=== PATIENT | male | born 1985 | race Caucasian/White ===

== ENCOUNTER 2016-08-05 12:49 | Emergency (ER) | payer SELFPAY ==
--- NOTE | 2016-08-05 13:25 | ED NURSING NOTES ---
Clinical Report - Nurses [facility] [address] [place] [address] 08/05/2016 12:49 Patient: STEPHANI EISENBERG [facility]#: [id number] TRIAGE Triage time 12:55 Aug 05 2016. Chief Complaint: RIGHT LOWER EXTREMITY REDNESS. Location of symptoms- right thigh (pt seen at evt clinic on monday and monday this week dx with cellulitis and put on bactrim and cephalexin). Alert. No acute distress. SEPSIS SCREEN: Sepsis Screen: negative. Infection suspected/documented. RAPHAEL COMA SCORE: Raphael Coma Scale: 15- eyes open spontaneously (4); best verbal response- oriented x 4 (5); best motor response- obeys commands (6). --13:04 Gustavo Patrick R.N. 12:55 08/05/16. BP: 118/73. HR: 76. RR: 17. O2 saturation: 99%. Temp: 98.6 F. Pain level now: 07/20. --13:04 Gustavo Patrick R.N. Weight: 73 kg stated. Height/Length: 66 inches Per Patient. BMI: 26. --13:03 Gustavo Patrick R.N. Medications Bactrim DS Oral. Cephalexin Oral. --12:58 Gustavo Patrick R.N. Oxycodone-Acetaminophen Oral. --12:59 Gustavo Patrick R.N. Medication/allergy information source: the patient. --13:04 Gustavo Patrick R.N. Allergies Hydrocodone. --12:59 Gustavo Patrick R.N. History Arrived by private vehicle. Historian: patient. Accompanied by family. No injury occurred. This occurred (monday aftenoon). ( chills on monday none since). 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 PAST MEDICAL HX: Tetanus status: up-to-date. Immunizations: up-to-date. SOCIAL HX: Heavy tobacco smoker (cigarette)- 1 pack per day. Occasional alcohol use. History of heavy drug use: marijuana. No infectious disease exposure. ABUSE ASSESSMENT: No report of abuse. SELF HARM ASSESSMENT: A self harm assessment was performed. The patient answered "no" to the question "Do you have thoughts of harming or killing yourself?". FALL RISK ASSESSMENT: Fall risk assessment completed. No fall risk identified. NUTRITIONAL RISK ASSESSMENT: The nutritional risk assessment revealed no deficiencies. FUNCTIONAL ASSESSMENT: Functional assessment: no impairments noted. LEARNING NEEDS ASSESSMENT: The learning needs assessment revealed no barriers. SKIN INTEGRITY ASSESSMENT: Skin integrity risk assessment completed. No skin integrity risk identified. --13:04 Gustavo Patrick R.N. PROBLEMS: Head Injury. Intracranial Hemorrhage. Concussion. Substance Abuse. Contusion. Skin Avulsion. Hypokalemia. Anemia. Seizure Disorder. --13:00 Gustavo Patrick R.N. ADDITIONAL SURGERIES: Hernia Repair. Testicle surg as a child. --13:00 Gustavo Patrick R.N. Interventions ID and allergy band on patient. --13:04 Gustavo Patrick R.N. PHYSICAL ASSESSMENT Ambulatory to room. Patient gowned. GENERAL / NEURO / PSYCH: Oriented X 4. Alert. Appears in no acute distress. EXTREMITIES: Extremity pulses are within normal limits. Extremities exhibit normal ROM. Neuro-vascular status intact to the extremity. No lower extremity edema. Normal gait. Right thigh: erythema. SKIN: Skin intact. Skin is warm and dry. --13:05 Gustavo Patrick R.N. NURSING PROGRESS NOTES Patient gowned. Reassurance given. Patient identifiers checked. Call light placed in reach. Side rails up x 1. Bed placed in lowest position. Brakes of bed on. Patient ready for evaluation- chart flagged. Patient waiting for evaluation. --13:05 Gustavo Patrick R.N. ( pt also reports cp during the night "like every 3rd or 4th breath" pt took aleve and now cp is gone.). --13:13 Gustavo Patrick R.N. EKG time: (1346). EKG was ordered, performed by a tech and shown to the PA. --13:46 Ortiz Cross, EMERY Tech1 Patient waiting for lab and radiology results. --13:53 Gustavo Patrick R.N. ( waiting lab reports). --13:55 Gustavo Patrick R.N. 13:53 08/05/16. BP: 103/63. HR: 77. RR: 17. O2 saturation: 98%. Pain level now: 07/20. --13:55 Gustavo Patrick R.N. Patient identifiers checked. Call light placed in reach. Side rails up x 1. Bed placed in lowest position. Brakes of bed on. --13:55 Gustavo Patrick R.N. Checked patient name and birthdate. Blood samples drawn with Vacutainer by nurse per protocol ; labeled in presence of the patient and sent to lab: [facility] set. (drawn by EDT). --13:56 Gustavo Patrick R.N. DISPOSITION / DISCHARGE No learning barriers present. Discharge instructions provided and reviewed with the patient and spouse. Reviewed medication(s) dosing information. Prescription(s) given to the patient (otc). Reviewed need to stop smoking. Patient and preschool teacher verbalized understanding. Written instructions provided in Italian. The patient was discharged by the physician judicial assistant. He was discharged home and accompanied by preschool teacher. He left the Emergency Department ambulatory and via private vehicle. Patient driving. ( pt ambulated to lobby with steady gait, given rx and f/u.). --14:39 Gustavo Patrick R.N. 14:30 08/05/16. BP: 113/70. HR: 66. RR: 17. O2 saturation: 99%. Temp: 98.4 F. Pain level now: 08/20. --14:39 Gustavo Patrick R.N. Locked/Released at 08/09/2016 12:18 by Gustavo Patrick R.N.
--- NOTE | 2016-08-05 13:25 | ED NURSING NOTES ---
Clinical Report - Nurses [facility] [address] [place] [address] 08/05/2016 12:49 Patient: STEPHANI EISENBERG [facility]#: [id number] TRIAGE Triage time 12:55 Aug 05 2016. Chief Complaint: RIGHT LOWER EXTREMITY REDNESS. Location of symptoms- right thigh (pt seen at evt clinic on monday and monday this week dx with cellulitis and put on bactrim and cephalexin). Alert. No acute distress. SEPSIS SCREEN: Sepsis Screen: negative. Infection suspected/documented. RAPHAEL COMA SCORE: Raphael Coma Scale: 15- eyes open spontaneously (4); best verbal response- oriented x 4 (5); best motor response- obeys commands (6). --13:04 Gustavo Patrick R.N. 12:55 08/05/16. BP: 118/73. HR: 76. RR: 17. O2 saturation: 99%. Temp: 98.6 F. Pain level now: 07/20. --13:04 Gustavo Patrick R.N. Weight: 73 kg stated. Height/Length: 66 inches Per Patient. BMI: 26. --13:03 Gustavo Patrick R.N. Medications Bactrim DS Oral. Cephalexin Oral. --12:58 Gustavo Patrick R.N. Oxycodone-Acetaminophen Oral. --12:59 Gustavo Patrick R.N. Medication/allergy information source: the patient. --13:04 Gustavo Patrick R.N. Allergies Hydrocodone. --12:59 Gustavo Patrick R.N. History Arrived by private vehicle. Historian: patient. Accompanied by family. No injury occurred. This occurred (monday aftenoon). ( chills on monday none since). 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 PAST MEDICAL HX: Tetanus status: up-to-date. Immunizations: up-to-date. SOCIAL HX: Heavy tobacco smoker (cigarette)- 1 pack per day. Occasional alcohol use. History of heavy drug use: marijuana. No infectious disease exposure. ABUSE ASSESSMENT: No report of abuse. SELF HARM ASSESSMENT: A self harm assessment was performed. The patient answered "no" to the question "Do you have thoughts of harming or killing yourself?". FALL RISK ASSESSMENT: Fall risk assessment completed. No fall risk identified. NUTRITIONAL RISK ASSESSMENT: The nutritional risk assessment revealed no deficiencies. FUNCTIONAL ASSESSMENT: Functional assessment: no impairments noted. LEARNING NEEDS ASSESSMENT: The learning needs assessment revealed no barriers. SKIN INTEGRITY ASSESSMENT: Skin integrity risk assessment completed. No skin integrity risk identified. --13:04 Gustavo Patrick R.N. PROBLEMS: Head Injury. Intracranial Hemorrhage. Concussion. Substance Abuse. Contusion. Skin Avulsion. Hypokalemia. Anemia. Seizure Disorder. --13:00 Gustavo Patrick R.N. ADDITIONAL SURGERIES: Hernia Repair. Testicle surg as a child. --13:00 Gustavo Patrick R.N. Interventions ID and allergy band on patient. --13:04 Gustavo Patrick R.N. PHYSICAL ASSESSMENT Ambulatory to room. Patient gowned. GENERAL / NEURO / PSYCH: Oriented X 4. Alert. Appears in no acute distress. EXTREMITIES: Extremity pulses are within normal limits. Extremities exhibit normal ROM. Neuro-vascular status intact to the extremity. No lower extremity edema. Normal gait. Right thigh: erythema. SKIN: Skin intact. Skin is warm and dry. --13:05 Gustavo Patrick R.N. NURSING PROGRESS NOTES Patient gowned. Reassurance given. Patient identifiers checked. Call light placed in reach. Side rails up x 1. Bed placed in lowest position. Brakes of bed on. Patient ready for evaluation- chart flagged. Patient waiting for evaluation. --13:05 Gustavo Patrick R.N. ( pt also reports cp during the night "like every 3rd or 4th breath" pt took aleve and now cp is gone.). --13:13 Gustavo Patrick R.N. EKG time: (1346). EKG was ordered, performed by a tech and shown to the PA. --13:46 Ortiz Cross, EMERY Tech1 Patient waiting for lab and radiology results. --13:53 Gustavo Patrick R.N. ( waiting lab reports). --13:55 Gustavo Patrick R.N. 13:53 08/05/16. BP: 103/63. HR: 77. RR: 17. O2 saturation: 98%. Pain level now: 07/20. --13:55 Gustavo Patrick R.N. Patient identifiers checked. Call light placed in reach. Side rails up x 1. Bed placed in lowest position. Brakes of bed on. --13:55 Gustavo Patrick R.N. Checked patient name and birthdate. Blood samples drawn with Vacutainer by nurse per protocol ; labeled in presence of the patient and sent to lab: rainbow set. (drawn by EDT). --13:56 Gustavo Patrick R.N. DISPOSITION / DISCHARGE No learning barriers present. Discharge instructions provided and reviewed with the patient and spouse. Reviewed medication(s) dosing information. Prescription(s) given to the patient (otc). Reviewed need to stop smoking. Patient and fresh foods clerk verbalized understanding. Written instructions provided in Romansh. The patient was discharged by the physician pediatric physical therapy assistant. He was discharged home and accompanied by fresh foods clerk. He left the Emergency Department ambulatory and via private vehicle. Patient driving. ( pt ambulated to lobby with steady gait, given rx and f/u.). --14:39 Gustavo Patrick R.N. 14:30 08/05/16. BP: 113/70. HR: 66. RR: 17. O2 saturation: 99%. Temp: 98.4 F. Pain level now: 08/20. --14:39 Gustavo Patrick R.N. Locked/Released at 08/09/2016 12:18 by Gustavo Patrick R.N.
--- NOTE | 2016-08-05 13:25 | ED CLINICAL REPORT ---
Clinical Report - Physicians/Mid Levels [facility] [address] [place] [address] 08/05/2016 12:49 Patient: STEPHANI EISENBERG Time Seen: 13:39 Aug 05 2016. Arrived- By private vehicle. Historian- patient. HISTORY OF PRESENT ILLNESS Chief Complaint: SKIN RASH. This started 3 days and is still present. It is described as painful. It has been generalized in location. (patient reports area swelling over the last 3 days, to the right lower extremity, was started on Keflex on the , and bactrim on the . patient denies fevers or chills or any drainage. Patient denies injury to the area. Second complaint is here for chest pain onset last night, with every third breath. Pain is intermittent and off and on. Patient denies any trauma. Denies any cough. Denies any recent illness, nausea or vomiting. Patient reports taking Aleve for this yesterday with improvement of symptoms.). REVIEW OF SYSTEMS No fever, sore throat, difficulty breathing, lump in throat or nausea. All systems otherwise negative, except as recorded above. 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 LABS, X-RAYS, AND EKG EKG: EKG time: (1346). No acute process. No acute ischemia. Rate: 67. Normal P waves. Normal NICOLE. Normal QRS complex. Normal ST and T waves and QT. The study has been interpreted contemporaneously. The study has been independently viewed by me. The EKG appears to be a good tracing. Chest X-ray: (IMPRESSION: 1. Negative chest. Electronically Final signed by:Camron Padilla MD 08/05/2016 1:58:20 PM). Laboratory Tests: CBC w Diff: (TANK: 08/05/2016 13:57) ( MsgRcvd 08/05/2016 14:06) Final results Test Result Flag Units (Reference) WHITE BLOOD COUNT 8.2 K/uL (4.5-11.5) RED BLOOD COUNT 4.36 L M/uL (4.50-5.90) HEMOGLOBIN 13.9 gm/dL (13.5-17.5) HEMATOCRIT 41.2 % (41.0-53.0) MEAN CELL VOLUME 95 fL (80-100) MEAN CORPUSCULAR HGB 32 pg (26-34) MEAN CORPUSCULAR HGB CONC 34 g/dL (31-37) RED CELL DISTRIBUTION WIDTH 14.2 % (11.6-14.8) PLATELET COUNT 240 K/uL (150-400) NEUTROPHIL % 62.4 % (50-75) LYMPH % 20.6 L % (25-40) MONO % 14.5 H % (3-14) EOSINOPHIL % 2.3 % (0-4) BASOPHIL % 0.2 % (0-2) CHEM 13 PANEL: (TANK: 08/05/2016 13:57) ( MsgRcvd 08/05/2016 14:28) Final results Test Result Flag Units (Reference) GLUCOSE 91 mg/dL (70-110) BUN 6 L mg/dL (7-18) CREATININE 0.9 mg/dL (0.6-1.3) Estimated GFR >60 mL/min Estimated GFR- >60 mL/min Note: Persistent reduction over 3 months in eGFR<60 mL/min/1.73 m2 defines CKD. Patients with eGFR values>=60 mL/min/1.73 m2 may also have CKD if evidence ofpersistent proteinuria. Additional information may be foundat www.kidney.org. SODIUM 140 mmol/L (136-145) POTASSIUM 4.0 mmol/L (3.5-5.1) CHLORIDE 104 mmol/L (98-107) CARBON DIOXIDE 25 mmol/L (21-32) CALCIUM 8.7 mg/dL (8.5-10.1) TOTAL PROTEIN 7.2 g/dL (6.4-8.2) ALBUMIN 3.6 g/dL (3.3-5.0) BILIRUBIN, TOTAL 0.3 mg/dL (0.0-1.0) ALKALINE PHOSPHATASE 41 L U/L (46-116) AST (SGOT) 14 L U/L (15-37) ALT (SGPT) 25 U/L (12-78) MAGNESIUM 1.9 mg/dL (1.8-2.4) CPK 59 U/L (24-260) TROPONIN I <0.05 L ng/mL (0.00-1.5) TROPONIN REFERENCE RANGE:<0.1 NEGATIVE0.1-1.5 INDETERMINANT>1.5 POSITIVE . PROGRESS AND PROCEDURES Course of Care: Patient asymptomatic in the ER. No lymphadenopathy of the right lower extremity. No new murmur. Afebrile. No leukocytosis. Do not suspect PE, dissection, ACS. 08/05/2016 13:53 BP: 103/63. HR: 77. RR: 17. O2 saturation: 98%. Pain level now: 5/10. Patient is stable. Symptoms better. Patient/family counseled. Differential Diagnosis: I considered muscle strain, costochondritis, pleurisy, intercostal neuritis, pulmonary embolism, pneumonia and gastroesophageal reflux disease as a possible cause of chest pain in this patient. This is a partial list of diagnoses considered. Disposition: Discharged. CLINICAL IMPRESSION Atypical chest pain Chest wall pain Cellulitis. INSTRUCTIONS (as mentioned in 48 hours re-evaluate to your current status, if significant worsening return to ER [facility]). Your Current Medications: CONTINUE TAKING THE FOLLOWING MEDICATIONS: Bactrim DS Oral. Cephalexin Oral. Oxycodone-Acetaminophen Oral. Prescription Medications: Motrin 800 mg tablets: take 1 tablet orally every 8 hours for 5 days, as needed for pain. Dispense fifteen (15). No refill. Substitution is permissible. OTC Medications: Take OTC medications according to label instructions. Available over the counter. Follow-up: Follow up with your doctor Monday. Understanding of the discharge instructions verbalized. (Electronically signed by Marybel Yao P.A.-C 08/05/2016 14:36)
--- NOTE | 2016-08-05 13:41 | ED ORDER SUMMARY ---
..... Patient: STEPHANI EISENBERG OrderSheet [facility] VisitID: [id number] [address] [place] [address] 31y, M Registration Date/Time: 08/05/2016 ORDER SHEET Weight: 73.0 kg (stated) Allergies: Hydrocodone GENERAL ORDERS: Chest 2V Urgent (13:36 08/05/2016 EKoroleva P.A.-C) (Ack 13:37 PWeiler ER Tech1) (13:48 KPage-Kuchan R.N.) Silver Wrapper (Continuous) (13:36 08/05/2016 EKoroleva P.A.-C) (13:48 KPage-Kuchan R.N.) Cardiac Panel Stat (13:36 08/05/2016 EKoroleva P.A.-C) (Ack 13:37 PWeiler ER Tech1) (13:48 KPage-Kuchan R.N.) EKG - ER Stat (13:36 08/05/2016 EKoroleva P.A.-C) (Ack 13:37 PWeiler ER Tech1) (13:44 PWeiler ER Tech1) MEDICATION ORDERS: IV FLUIDS: IV Saline Lock (13:36 08/05/2016 EKoroleva P.A.-C) (Ack 13:41 Maximo R.N.) (Cancelled: Other13:43 EKoroleva P.A.-C) ORDER SHEET NOTES: [Electronically signed by Marybel Yao P.A.-C (14:36 08/05/2016)] [Electronically signed by Gustavo Patrick R.N. (12:18 08/09/2016)] [Electronically locked/signed by Gustavo Patrick R.N. (12:18 08/09/2016)]
--- NOTE | 2016-08-05 13:41 | ED ORDER SUMMARY ---
..... Patient: STEPHANI EISENBERG OrderSheet [facility] VisitID: [id number] [address] [place] [address] 31y, M Registration Date/Time: 08/05/2016 ORDER SHEET Weight: 73.0 kg (stated) Allergies: Hydrocodone GENERAL ORDERS: Chest 2V Urgent (13:36 08/05/2016 EKoroleva P.A.-C) (Ack 13:37 PWeiler ER Tech1) (13:48 KPage-Kuchan R.N.) Bakery Chef (Continuous) (13:36 08/05/2016 EKoroleva P.A.-C) (13:48 KPage-Kuchan R.N.) Cardiac Panel Stat (13:36 08/05/2016 EKoroleva P.A.-C) (Ack 13:37 PWeiler ER Tech1) (13:48 KPage-Kuchan R.N.) EKG - ER Stat (13:36 08/05/2016 EKoroleva P.A.-C) (Ack 13:37 PWeiler ER Tech1) (13:44 PWeiler ER Tech1) MEDICATION ORDERS: IV FLUIDS: IV Saline Lock (13:36 08/05/2016 EKoroleva P.A.-C) (Ack 13:41 Maximo R.N.) (Cancelled: Other13:43 EKoroleva P.A.-C) ORDER SHEET NOTES: [Electronically signed by Marybel Yao P.A.-C (14:36 08/05/2016)] [Electronically signed by Gustaov Patrick R.N. (12:18 08/09/2016)] [Electronically locked/signed by Gustavo Patrick R.N. (12:18 08/09/2016)]
--- NOTE | 2016-08-05 13:57 | DIAGNOSTIC IMAGING REPORT ---
PROCEDURE: XR CHEST 2 VIEW INDICATION: CHEST PAIN TECHNIQUE: PA and lateral views. COMPARISON: None. FINDINGS: Lungs are clear. Heart and mediastinum are normal. Thorax is normal. IMPRESSION: 1. Negative chest.
--- NOTE | 2016-08-09 12:19 | ED MED RECONCILIATION SUMMARY ---
Patient: STEPHANI EISENBERG Medication Reconciliation Report [facility] VisitID: [id number] [address] [place] [address] 31y, M Registration Date/Time: 08/05/2016 Weight: 73.0 kg Height/Length: 66 in. BMI: 26.0 ALLERGIES: Hydrocodone The patient's Home Medications are listed below: CONTINUE TAKING THE FOLLOWING MEDICATIONS: Bactrim DS Oral Cephalexin Oral Oxycodone-Acetaminophen Oral The source(s) of the original Home Medication information: patient The following Medications were given to the patient in the Emergency Department: None. The following Medications were prescribed to the patient: Take OTC medications according to label instructions. Available over the counter. -- Marybel Yao, P.ADaniel-Amy Motrin 800 mg tablets: take 1 tablet orally every 8 hours for 5 days, as needed for pain. Dispense fifteen (15). No refill. Substitution is permissible. -- Marybel Yao, P.A.-C
--- NOTE | 2016-08-09 12:19 | ED DISCHARGE INSTRUCTIONS ---
Patient: STEPHANI EISENBERG General Instructions [facility] VisitID: [id number] [place] [address] 31y, M Registration Date/Time: 08/05/2016 Atypical chest pain Chest wall pain Cellulitis. INSTRUCTIONS (as mentioned in 48 hours re-evaluate to your current status, if significant worsening return to ER [facility]). Your Current Medications: CONTINUE TAKING THE FOLLOWING MEDICATIONS: Bactrim DS Oral. Cephalexin Oral. Oxycodone-Acetaminophen Oral. Prescription Medications: Motrin 800 mg tablets: take 1 tablet orally every 8 hours for 5 days, as needed for pain. Dispense fifteen (15). No refill. Substitution is permissible. OTC Medications: Take OTC medications according to label instructions. Available over the counter. Follow-up: Follow up with your doctor Monday. Understanding of the discharge instructions verbalized. ADDITIONAL INFORMATION Cellulitis You have an infection of the skin known as cellulitis. This usually starts with a scrape, cut, insect bite, blister or other opening in the skin which becomes infected. This is a serious condition. It must be watched closely to be sure the infection is not spreading. With antibiotic treatment, the size of the red area will gradually shrink in size until the skin returns to normal. This will take 7-10 days. The red area should never increase in size once the antibiotic medicine has been started. Occasionally, an infection will be resistant to one antibiotic and another one will have to be used. Home Care: 1) Limit the use of the affected part, since excess movement can cause the infection to spread. 2) If the infection is on your leg, walk as little as possible during the first few days of the treatment. Keep your leg elevated while sitting. This will reduce swelling. 3) Take all of the antibiotic medicine exactly as directed until it is gone. Be careful not to miss any doses, especially during the first seven days. Follow Up with your doctor or this facility as directed. Check the infected area daily for the warning signs listed below. Get Prompt Medical Attention if any of the following occur: -- Spreading area of redness -- Increasing swelling or pain -- Appearance of pus or drainage -- Fever over 100.4 F (38.0 C) oral, or over 101.4 F (38.6 C) rectal, after two days on antibiotics Chest Pain, Noncardiac Based on your visit today, the exact cause of your chest pain is not certain. Your condition does not seem serious and your pain does not appear to be coming from your heart. However, sometimes the signs of a serious problem take more time to appear. Therefore, please watch for the warning signs listed below. Home Care: Rest today and avoid strenuous activity. Take any prescribed medicine as directed. Follow Up with your doctor or this facility as instructed or if you do not start to feel better within 24 hours. Get Prompt Medical Attention if any of the following occur: A change in the type of pain: if it feels different, becomes more severe, lasts longer, or begins to spread into your shoulder, arm, neck, jaw or back Shortness of breath or increased pain with breathing Cough with dark colored sputum (phlegm) or blood Weakness, dizziness, or fainting Fever of 100.4F (38C) or higher, or as directed by your healthcare provider Swelling, pain or redness in one leg Chest Pain, Uncertain Cause Chest pain can happen for a number of reasons. Sometimes the cause can not be determined. If yourcondition does not seem serious, and your pain does not appear to be coming from your heart, your doctor may recommend watching it closely. Sometimes the signs of a serious problem take more time to appear. Therefore, watch for the warning signs listed below. Home care After your visit, follow these recommendations: Rest today and avoid strenuous activity. Take any prescribed medicine as directed. Follow-up care Follow up with your doctor or this facility as instructed or if you do not start to feel better within 24 hours. Call 911 Get immediate medical attention if any of the following occur: A change in the type of pain: if it feels different, becomes more severe, lasts longer, or begins to spread into your shoulder, arm, neck, jaw or back Shortness of breath or increased pain with breathing Weakness, dizziness, or fainting Rapid heart beat Get prompt medical attention Call your doctor right away if any of the following occur: Cough with dark colored sputum (phlegm) or blood Fever of 100.4F(38C) or higher, or as directed by your health care provider Swelling, pain or redness in one leg Chest Wall Pain: Costochondritis The chest pain that you have had today is caused by Costochondritis. This condition is due to an inflammation of the cartilage joining the ribs to the breastbone. It is not caused by heart or lung problems. Although the exact cause for costochondritis is not known, it often occurs during times of emotional stress. It can be painful, but it is not dangerous. It usually disappears within one to two weeks, but may recur. Rarely, a more serious condition may cause symptoms similar to costochondritis; therefore, watch for the warning signs listed below. Home Care: If you feel that emotional stress is a cause of your condition, try to identify sources of that stress. It may not be obvious! Learn ways to deal with the stress in your life such as regular exercise, muscle relaxation, meditation, or simply taking time out for yourself. For more information about this, consult your doctor or go to a local bookstore and review books and tapes available on the subject of stress reduction. You may use acetaminophen (Tylenol) or ibuprofen (Motrin, Advil) to control pain, unless another pain medicine was prescribed. [ NOTE: If you have liver disease or ever had a stomach ulcer, talk with your doctor before using these medicines.] The use of heat (hot wet compress or heating pad) with or without local analgesic creams (Deep Heat Rub, Gilmer Mendieta) will be helpful to reduce pain. Follow Up with your doctor as directed or sooner if you do not start to improve within the next two days. Get Prompt Medical Attention if any of the following occur: A change in the type of pain: if it feels different, becomes more severe, lasts longer, or spreads into your shoulder, arm, neck, jaw or back Shortness of breath or increased pain with breathing Weakness, dizziness, or fainting Cough with dark colored sputum (phlegm) or blood Abdominal pain Dark red or black stools Fever of 100.4F (38C) or higher, or as directed by your healthcare provider You have been given the following additional information: Cellulitis Chest Pain, Noncardiac Chest Pain, Uncertain Cause Chest Wall Pain, Costochondritis (Electronically signed by Marybel Yao P.A.-C 08/05/2016 14:36)
--- NOTE | 2016-08-09 12:19 | ED MAR SUMMARY ---
..... Medication Administration Record [facility] [address] [place], [place] [id number] Patient: STEPHANI EISENBERG Visit ID: [id number] 31y, M Weight: 73.0 kg Height/Length: 66 in BMI: 26 ALLERGIES: Hydrocodone
--- NOTE | 2016-08-09 12:19 | ED MAR SUMMARY ---
..... Medication Administration Record [facility] [address] [place] [place], [place] [id number] Patient: STEPHANI EISENBERG Visit ID: [id number] 31y, M Weight: 73.0 kg Height/Length: 66 in BMI: 26 ALLERGIES: Hydrocodone
--- NOTE | 2016-08-09 12:19 | ED MED RECONCILIATION SUMMARY ---
Patient: STEPHANI EISENBERG Medication Reconciliation Report [facility] VisitID: [id number] [address] [place] [address] 31y, M Registration Date/Time: 08/05/2016 Weight: 73.0 kg Height/Length: 66 in. BMI: 26.0 ALLERGIES: Hydrocodone The patient's Home Medications are listed below: CONTINUE TAKING THE FOLLOWING MEDICATIONS: Bactrim DS Oral Cephalexin Oral Oxycodone-Acetaminophen Oral The source(s) of the original Home Medication information: patient The following Medications were given to the patient in the Emergency Department: None. The following Medications were prescribed to the patient: Take OTC medications according to label instructions. Available over the counter. -- Marybel Yao, P.ADaniel-Amy Motrin 800 mg tablets: take 1 tablet orally every 8 hours for 5 days, as needed for pain. Dispense fifteen (15). No refill. Substitution is permissible. -- Marybel Yao, P.A.-C
== END 2016-08-05 14:36 | disposition home or self-care (01) ==
LOC: ED SRH 12:49
DX: R07.89 Other chest pain (principal); L03.115 Cellulitis of right lower limb; Z88.5 Allergy status to narcotic agent; Z79.899 Other long term (current) drug therapy
CPT/HCPCS: 90074; 90100; 90616; 92610; 92720; 95059